=== PATIENT | male | born 1985 | race Caucasian/White ===

== ENCOUNTER 2019-05-04 17:54 | Emergency (ER) | payer OTHER ==
[2019-05-04 19:03] LABS: Urine Blood NEGATIVE (NEG); Urine Glucose TRACE (NEG); Urine Protein NEGATIVE (NEG); Urine Specific Gravity >1.030 (1.005-1.030); Urine pH 5.5 (5.0-7.0)
[2019-05-04] MEDS ORDERED: dexAMETHasone 10 MG/ML VIAL ONE (19:17)
[2019-05-04] MEDS ORDERED: FENTANYL CITR 100 MCG/2 ML ONE (19:19)
[2019-05-04] MEDS ORDERED: ONDANSETRON 4 MG (ODT) TAB ONE (19:19)
[2019-05-04] MEDS ORDERED: KETOROLAC 30 MG/ML INJ ONE (19:19)
--- NOTE | 2019-05-04 20:15 | ER ---
Nurse's Notes [facility] Name: Salvador Hamilton Age: 34 yrs Sex: Male : 1985 Arrival Date: 05/04/2019 Time: 17:59 Bed 14 Private MD: Diagnosis: Low back pain Presentation: 05/04 18:08 Presenting complaint: Patient states: in 2009 I was trampled by horses and have had la1 intermittent back pain, Friday morning I woke up and my pain is bad and not getting better. Transition of care: patient was not received from another setting of care. Onset of symptoms was May 04, 2019. Risk Assessment: Do you want to hurt yourself or someone else? Patient reports no desire to harm self or others. Initial Sepsis Screen: Does the patient meet any 2 criteria? No. Patient's initial sepsis screen is negative. Does the patient have a suspected source of infection? No. Patient's initial sepsis screen is negative. Care prior to arrival: None. 18:08 Method Of Arrival: Ambulatory la1 18:08 Acuity: PURA 3 la1 Historical: - Allergies: 18:08 PENICILLINS; la1 18:08 Keflex; la1 18:08 Erythromycin; la1 18:08 Neomycin; la1 - PMHx: 18:08 hypoglycemia; la1 - Immunization history:: Adult Immunizations up to date. - Social history:: Smoking status: Patient/guardian denies using tobacco. - Ebola Screening: : No symptoms or risks identified at this time. Screenin:05 Abuse screen: Denies threats or abuse. Denies injuries from another. Nutritional rr5 screening: No deficits noted. Tuberculosis screening: No symptoms or risk factors identified. Fall Risk None identified. Total Almaraz Fall Scale indicates No Risk (0-24 pts). Assessment: 19:05 General: Appears in no apparent distress. uncomfortable, Behavior is calm, cooperative, rr5 appropriate for age. 19:05 Pain: Complains of pain in back Pain does not radiate. Pain currently is 8 out of 10 on rr5 a pain scale. Quality of pain is described as aching, Pain began gradually, Is intermittent. Neuro: Level of Consciousness is awake, alert, obeys commands, Oriented to person, place, time, situation, Appropriate for age. Cardiovascular: Capillary refill < 3 seconds Patient's skin is warm and dry. Respiratory: Airway is compromised Respiratory effort is even, unlabored, Respiratory pattern is regular, symmetrical. GI: No signs and/or symptoms were reported involving the gastrointestinal system. : Reports pain in right flank(s). EENT: No signs and/or symptoms were reported regarding the EENT system. Derm: Skin is intact, Skin is pink, warm \T\ dry. Musculoskeletal: Circulation, motion, and sensation intact. Capillary refill < 3 seconds, Reports pain in back. 20:30 Reassessment: Patient appears in no apparent distress at this time. Patient is alert, rr5 oriented x 3, equal unlabored respirations, skin warm/dry/pink. discharge instruction given and explained without complaints made. verbalized understanding Patient states feeling better. Patient states symptoms have improved. Vital Signs: 18:10 Pulse 91; Resp 16; Temp 97.5; Pulse Ox 100% on R/A; Weight 106.59 kg; Height 6 ft. 2 la1 in. (187.96 cm); 18:11 BP 138 / 94; la1 19:05 BP 135 / 75; Pulse 90; Resp 17; Temp 98; Pulse Ox 99% ; Pain 8/10; rr5 20:15 BP 132 / 82; Pulse 75; Resp 16; Temp 97.7; Pulse Ox 100% ; Pain 2/10; rr5 18:10 Body Mass Index 30.17 (106.59 kg, 187.96 cm) la1 ED Course: 17:59 Patient arrived in ED. mr 18:08 Arm band placed on right wrist. la1 18:10 Triage completed. la1 18:46 Kenyatta Bella RN is Primary Nurse. jl7 18:49 Tej Yang NP is PHCP. pm1 18:49 Cash Arroyo MD is Attending Physician. pm1 19:05 Patient has correct armband on for positive identification. Bed in low position. Side rr5 rails up X2. 19:05 No provider procedures requiring assistance completed. Patient did not have IV access rr5 during this emergency room visit. 19:13 Manish Josehp RN is Primary Nurse. rr5 Administered Medications: 09:25 Drug: Decadron 10 mg {Note: po.} Route: IM; Site: Other; rr5 20:43 Follow up: Response: No adverse reaction rr5 19:26 Drug: Zofran 4 mg Route: PO; rr5 20:43 Follow up: Response: No adverse reaction rr5 19:28 Drug: TORadol 60 mg Route: IM; Site: right gluteus; rr5 20:30 Follow up: Response: No adverse reaction; Pain is decreased rr5 19:29 Drug: fentaNYL (PF) 50 mcg {Note: rass 0.} Route: IM; Site: left deltoid; rr5 20:30 Follow up: Response: No adverse reaction; Pain is decreased; RASS: Alert and Calm (0) rr5 Outcome: 20:13 Discharge ordered by MD. pm1 20:43 Discharged to home ambulatory, with family. rr5 20:43 Condition: stable 20:43 Discharge instructions given to patient, family, Instructed on discharge instructions, rr5 follow up and referral plans. medication usage, Demonstrated understanding of instructions, follow-up care, medications, Prescriptions given X 3. 20:45 Patient left the ED. rr5 Signatures: Esther Hagen Lee RN RN la1 Tej Yang, CH[address] PROJECT MANAGER pm1 Kenyatta Bella RN RN jl7 Manish Joseph RN RN rr5
--- NOTE | 2019-05-04 20:16 | EDPHYS ---
Physician Documentation [facility] Name: Salvador Hamilton Age: 34 yrs Sex: Male : 1985 Arrival Date: 05/04/2019 Time: 17:59 Bed 14 Private MD: ED Physician Cash Arroyo HPI: 05/04 18:08 This 34 yrs old Male presents to ER via Ambulatory with complaints of Low pm1 Back Pain. 18:08 The patient presents with pain that is chronic, with no known mechanism of injury. The pm1 symptoms are located in the low back. The pain does not radiate. The problem was sustained movement at work. Works at the plant. Onset: The symptoms/episode began/occurred 3 day(s) ago, Chronic pain since 2009. Modifying factors: The patient symptoms are alleviated by nothing, the patient symptoms are aggravated by movement. Associated signs and symptoms: The patient has no apparent associated signs or symptoms, Pertinent negatives: chest pain, dysuria, fever, nausea, vomiting. Severity of symptoms: in the emergency department the symptoms are actually worse. The patient has experienced similar episodes in the past, chronically. The patient has not recently seen a physician. Historical: - Allergies: 18:08 PENICILLINS; la1 18:08 Keflex; la1 18:08 Erythromycin; la1 18:08 Neomycin; la1 - PMHx: 18:08 hypoglycemia; la1 - Immunization history:: Adult Immunizations up to date. - Social history:: Smoking status: Patient/guardian denies using tobacco. - Ebola Screening: : No symptoms or risks identified at this time. ROS: 18:08 Constitutional: Negative for fever, chills, and weight loss, Eyes: Negative for injury, pm1 pain, redness, and discharge, ENT: Negative for injury, pain, and discharge, Neck: Negative for injury, pain, and swelling, Cardiovascular: Negative for chest pain, palpitations, and edema, Respiratory: Negative for shortness of breath, cough, wheezing, and pleuritic chest pain, Abdomen/GI: Negative for abdominal pain, nausea, vomiting, diarrhea, and constipation. 18:08 : Negative for injury, bleeding, discharge, and swelling, MS/Extremity: Negative for injury and deformity, Skin: Negative for injury, rash, and discoloration, Neuro: Negative for headache, weakness, numbness, tingling, and seizure. 18:08 Back: Positive for of the low back area. Exam: 18:08 Constitutional: This is a well developed, well nourished patient who is awake, alert, pm1 and in no acute distress. Head/Face: Normocephalic, atraumatic. Eyes: Pupils equal round and reactive to light, extra-ocular motions intact. Lids and lashes normal. Conjunctiva and sclera are non-icteric and not injected. Cornea within normal limits. Periorbital areas with no swelling, redness, or edema. ENT: Nares patent. No nasal discharge, no septal abnormalities noted. Tympanic membranes are normal and external auditory canals are clear. Oropharynx with no redness, swelling, or masses, exudates, or evidence of obstruction, uvula midline. Mucous membranes moist. Neck: Trachea midline, no thyromegaly or masses palpated, and no cervical lymphadenopathy. Supple, full range of motion without nuchal rigidity, or vertebral point tenderness. No Meningismus. Chest/axilla: Normal chest wall appearance and motion. Nontender with no deformity. No lesions are appreciated. Cardiovascular: Regular rate and rhythm with a normal S1 and S2. No gallops, murmurs, or rubs. Normal PMI, no JVD. No pulse deficits. Respiratory: Lungs have equal breath sounds bilaterally, clear to auscultation and percussion. No rales, rhonchi or wheezes noted. No increased work of breathing, no retractions or nasal flaring. Abdomen/GI: Soft, non-tender, with normal bowel sounds. No distension or tympany. No guarding or rebound. No evidence of tenderness throughout. 18:08 Skin: Warm, dry with normal turgor. Normal color with no rashes, no lesions, and no evidence of cellulitis. MS/ Extremity: Pulses equal, no cyanosis. Neurovascular intact. Full, normal range of motion. 18:08 Back: normal spinal alignment noted, muscle spasm, is appreciated in the low back area, no vertebral tenderness. 18:08 Neuro: Orientation: is normal, Motor: is normal, moves all fours, strength is 5/5 in all extremities, 5/5 strength dorsiflexion and plantar flexion of bilateral great toes, Sensation: is normal, no obvious gross deficits. Vital Signs: 18:10 Pulse 91; Resp 16; Temp 97.5; Pulse Ox 100% on R/A; Weight 106.59 kg; Height 6 ft. 2 la1 in. (187.96 cm); 18:11 BP 138 / 94; la1 19:05 BP 135 / 75; Pulse 90; Resp 17; Temp 98; Pulse Ox 99% ; Pain 8/10; rr5 20:15 BP 132 / 82; Pulse 75; Resp 16; Temp 97.7; Pulse Ox 100% ; Pain 2/10; rr5 18:10 Body Mass Index 30.17 (106.59 kg, 187.96 cm) la1 MDM: 18:49 Patient medically screened. pm1 20:12 Data reviewed: vital signs. Data interpreted: Pulse oximetry: on room air is 100 %. pm1 Interpretation: normal. Counseling: I had a detailed discussion with the patient and/or guardian regarding: the historical points, exam findings, and any diagnostic results supporting the discharge/admit diagnosis, the need for outpatient follow up, for definitive care, a neurosurgeon, MRI, to return to the emergency department if symptoms worsen or persist or if there are any questions or concerns that arise at home. 05/04 18:56 Order name: Urine Dipstick--Ancillary (enter results) bd Administered Medications: 09:25 Drug: Decadron 10 mg {Note: po.} Route: IM; Site: Other; rr5 20:43 Follow up: Response: No adverse reaction rr5 19:26 Drug: Zofran 4 mg Route: PO; rr5 20:43 Follow up: Response: No adverse reaction rr5 19:28 Drug: TORadol 60 mg Route: IM; Site: right gluteus; rr5 20:30 Follow up: Response: No adverse reaction; Pain is decreased rr5 19:29 Drug: fentaNYL (PF) 50 mcg {Note: rass 0.} Route: IM; Site: left deltoid; rr5 20:30 Follow up: Response: No adverse reaction; Pain is decreased; RASS: Alert and Calm (0) rr5 Disposition: 21:14 Co-signature as Attending Physician, Cash Arroyo MD. ma2 Disposition: 05/04/19 20:13 Discharged to Home. Impression: Low back pain. - Condition is Stable. - Discharge Instructions: Back Pain, Adult, Musculoskeletal Pain, Back Injury Prevention, [id number]. - Prescriptions for Naprosyn 500 mg Oral Tablet - take 1 tablet by ORAL route 2 times per day take with food; 30 tablet. Tylenol- Codeine #3 300-30 mg Oral Tablet - take 2 tablets by ORAL route every 6 hours As needed; 20 tablet. Medrol (Brett) 4 mg Oral Tablets, Dose Pack - take 1 tablet by ORAL route as directed - follow package instructions; 1 packet. - Medication Reconciliation Form, Thank You Letter, Antibiotic Education, Prescription Opioid Use, Work release form form. - Follow up: Emergency Department; When: As needed; Reason: Worsening of condition. Follow up: Private Physician; When: 2 - 3 days; Reason: Recheck today's complaints, Continuance of care, Re-evaluation by your physician. - Problem is new. - Symptoms have improved. Signatures: Dispatcher [employer] EDMS Guillermo Longoria RN RN la1 Tej Yang NP SUPERVISOR STATEMENT CLERKS pm1 Cash Arroyo MD MD ma2 Manish Joseph RN RN rr5 Corrections: (The following items were deleted from the chart) 20:45 20:13 05/04/2019 20:13 Discharged to Home. Impression: Low back pain. Condition is rr5 Stable. Forms are Medication Reconciliation Form, Thank You Letter, Antibiotic Education, Prescription Opioid Use. Follow up: Emergency Department; When: As needed; Reason: Worsening of condition. Follow up: Private Physician; When: 2 - 3 days; Reason: Recheck today's complaints, Continuance of care, Re-evaluation by your physician. Problem is new. Symptoms have improved. pm1
[2019-05-04 21:18] VITALS: BP 132/82; TEMP 97.7; O2SAT 100
== END 2019-05-04 20:45 | disposition home or self-care (01) ==
LOC: ER 17:54
DX: M54.5 Low back pain (principal); W55.12XA Struck by horse, initial encounter; Y99.8 Other external cause status; Y93.89 Activity, other specified; Y92.9 Unspecified place or not applicable
CPT/HCPCS: 81003; 96372; 99283; J3010; J1100

== ENCOUNTER 2023-06-20 11:00 | Day surgery (SDC) | payer BC, OTHER ==
[2023-06-16 16:01] LABS: Absolute Lymphocytes (CBC) 2.3 K/uL (0.7-4.9); Hematocrit 43.1 % (39.6-49.0); Lymphocytes % 28.9 % (15.3-44.8); MCV 91.8 fL (80-100); Platelets 270 thou/uL (152-406); RBC Red Blood Cell Count 4.69 M/uL (4.33-5.43)
[2023-06-16 16:04] LABS: Protime INR 0.93
[2023-06-16 16:15] LABS: Potassium 3.9 mEq/L (3.5-5.1)
--- NOTE | 2023-06-16 16:19 | RAD REPORT ---
EXAM DESCRIPTION: Soledad Minor (2 Views)06/16/2023 4:03 pm CLINICAL HISTORY: Preop for cardiac catheterization COMPARISON: None FINDINGS: The lungs appear clear of acute infiltrate. The heart is normal size IMPRESSION: No acute abnormalities displayed
--- NOTE | 2023-06-17 11:57 | EKG ---
Test Date: 2023-06-16 Test Time: 15:41:32 Exercise Specialist: FABIANO MEASUREMENT RESULTS: Intervals: Rate: 91 DE: 148 QRSD: 80 QT: 336 QTc: 413 [place]: P: 34 DE: 148 QRS: 68 T: 60 INTERPRETIVE STATEMENTS: Normal sinus rhythm Normal ECG No previous ECG available for comparison Electronically Signed On 06-17-23 11:54:05 CDT by Juan Alvarado
[2023-06-20] MEDS ORDERED: NA CHLORIDE 0.9% 500 ML ONE (11:32)
[2023-06-20] MEDS ORDERED: HEPARIN 5000 UNIT/ML 1 ML VIAL ONE (12:21)
[2023-06-20] MEDS ORDERED: FENTANYL CITR 100 MCG/2 ML ONE (12:21)
[2023-06-20] MEDS ORDERED: HEPA 1000U/500MLS 2,000 UNIT/1,000 ML BAG IV ONE (12:21)
[2023-06-20] MEDS ORDERED: MIDAZOLAM HCL 2 MG/2 ML INJ ONE (12:21)
[2023-06-20] MEDS ORDERED: LIDOCAINE 1% 20 ML MDV ONE (12:21)
[2023-06-20] MEDS ORDERED: VERAPAMIL HCL 10 MG/4 ML VIAL IV ONE (12:21)
[2023-06-20] MEDS ORDERED: ASPIRIN 325 MG TAB ONE (12:22)
[2023-06-20] MEDS ORDERED: ATROPINE SULF 1 MG/10 ML SYR IV ONE (12:22)
[2023-06-20] MEDS ORDERED: CLOPIDOGREL 75 MG TABLET ONE (12:22)
[2023-06-20] MEDS ORDERED: HEPARIN 10,000 UNIT/10 ML VIAL IV ONE (12:22)
[2023-06-20] MEDS ORDERED: TICAGRELOR 90 MG TABLET PO ONE (12:22)
--- NOTE | 2023-06-20 13:55 | OP ---
Date of Procedure: 06/20/2023 Surgeon: SANJANA VARGAS Procedures Performed: 1.Selective coronary angiogram. 2.Left heart catheterization. 3.Right heart catheterization. Indication: 1.Unstable angina. 2.Significant shortness of breath on minimal exertion. Access: 1.Right radial artery 6-Gambian closed with TR band. 2.Right IJ 7-Gambian closed with manual pressure. Complications: None. Bleeding: Less than 20 mL. Anesthesia: Total sedation time was 45 minutes, used fentanyl and Versed. Description Of Procedure: After risks, benefits, alternatives were explained, patient agreed to proc edure and signed informal consent. Patient was brought into the cardiac catheterization laboratory, prepped and draped in the usual sterile fashion. Then, I accessed right radial artery using [employer] c micropuncture kit, placed 6-Gambian Slender sheath and then I accessed right IJ using micropuncture kit and ultrasound guidance and placed 7-Gambian [place] sheath and took a 7-Gambian balloon tip [place] catheter through the IJ into the right atrium, right ventricle, PA and wedge, and obtained waveform a nd pressure and then performed thermodilution with cardiac output and then I removed the [place] and the n I took a 5-Gambian [place] 4.0 catheter through the radial access into the aortic root, engaged the le ft main and the right coronary artery, took standard views and the catheter was pushed over the wire into the LV, measured the LVEDP and pullback did not record any gradient and then I removed the tong ter and the sheath, placed TR band with good hemostasis. Findings: 1.Left main is normal. 2.LAD is normal. Normal diagonal branches. 3.Left circumflex is normal. 4.RCA is normal. 5.Normal LVEDP at 5 mmHg. Right Heart Cath Numbers: RA pressure was 3. RV pressure 22/1, mean of 5. PA pressure was 19/2, me an of 14. Pulmonary wedge pressure was 8 and LVEDP was 5. Average cardiac output was 6.74 L/minute. Conclusion: 1.Normal coronary arteries. 2.Normal filling pressures and cardiac output. Recommendations: To be evaluated by pulmonology since shortness of breath is definitely not cardiac. SR/MODL Voice ID: [id number] Report ID: [id number]
[2023-06-20 16:08] VITALS: TEMP 98; O2SAT 98
[2023-06-20 16:29] VITALS: BP 112/78
== END 2023-06-20 15:10 | disposition home or self-care (01) ==
LOC: CCL 11:00
PROVIDERS: ATTEND Internal Medicine
DX: I20.0 Unstable angina (principal); R06.02 Shortness of breath; I10 Essential (primary) hypertension; E78.2 Mixed hyperlipidemia; F17.220 Nicotine dependence, chewing tobacco, uncomplicated; Z88.0 Allergy status to penicillin; Z88.3 Allergy status to other anti-infective agents; Z88.8 Allergy status to other drugs, medicaments and biological substances; Z82.49 Family history of ischemic heart disease and other diseases of the circulatory system
CPT/HCPCS: 93005; 85025; 80048; 36415; 83721; 85610; 85730; 71046; 93460; 76937; C1893; Q9966; J1644; J2001; J2250; J3010; J7040; J0461